=== PATIENT | female | born 1985 | race Caucasian/White ===

== ENCOUNTER 2022-04-13 12:54 | Emergency (ER) | payer OTHER ==
[2022-04-13 13:16] VITALS: BP 131/64; PULSE 89; TEMP 98; BMI 30.1
[2022-04-13] MEDS ORDERED: KETOROLAC TROMETHAMINE 30 MG/1 ML VIAL IM ONE (13:57)
[2022-04-13] MEDS ORDERED: KETOROLAC TROMETHAMINE 30 MG/1 ML VIAL ONE (13:58)
== END 2022-04-13 14:58 | disposition home or self-care (01) ==
LOC: JERFT 12:54 → JER 12:54 → JERFT 14:58
PROC: 3E0233Z Introduction of Anti-inflammatory into Muscle, Percutaneous Approach (ICD-10-PCS; principal; 2022-04-13)
DX: M54.50 Low back pain, unspecified (principal)
CPT/HCPCS: 84703; 99283-25

== ENCOUNTER 2022-11-11 22:25 | Emergency (ER) | payer OTHER ==
[2022-11-11 22:42] VITALS: BP 105/60; PULSE 84; RESP 17; TEMP 97.6; BMI 28.3
== END 2022-11-12 03:50 | disposition left against medical advice (07) ==
LOC: JER 22:25
DX: N93.9 Abnormal uterine and vaginal bleeding, unspecified (principal)
CPT/HCPCS: 99281-25

== ENCOUNTER 2023-08-21 22:50 | Emergency (ER) | payer SELFPAY ==
[2023-08-21 23:18] VITALS: BP 106/67; PULSE 108; RESP 16; BMI 24.7
[2023-08-21] MEDS ORDERED: FAMOTIDINE 20 MG/50 ML IVPB 20 MG/50 ML MG IVPB ONE ×2 (23:26→23:54)
[2023-08-21] MEDS ORDERED: ONDANSETRON 4 MG/2 ML VIAL IVPUSH ONE (23:26)
[2023-08-21] MEDS ORDERED: SODIUM CHLORIDE 0.9% 500 ML INFUS.BAG IV ONE (23:27)
[2023-08-21] MEDS ORDERED: ONDANSETRON 4 MG/2 ML VIAL ONE (23:54)
[2023-08-22 00:02] LABS: BASO % 0.3 % (0-2.0); EOS % 0.6 % (0-4.5); HEMATOCRIT 40.7 % (32.4-45.2); HEMOGLOBIN 14.3 GM/dL (10.7-15.3); LYMPH % 22.3 % (8-40); MCH 28.9 pg (25.7-33.7); MCHC 35.2 g/dl (32.0-36.0); MEAN CELL VOLUME 82.1 fl (80-96); MEAN PLT VOLUME 7.4 fl (7.5-11.1); MONO % 6.3 % (3.8-10.2); NEUT % 70.5 % (42.8-82.8); PLATELET COUNT 291 10^3/uL (134-434); RBC 4.95 M/mm3 (3.60-5.2); RDW 12.9 % (11.6-15.6); WHITE BLOOD COUNT 6.7 K/mm3 (4.0-10.0)
[2023-08-22 00:12] LABS: POTASSIUM 3.7 mmol/L (3.5-5.1)
[2023-08-22 00:14] LABS: CALCIUM 9.2 mg/dL (8.5-10.1)
[2023-08-22 00:15] LABS: ALBUMIN 4.2 g/dl (3.4-5.0); BLOOD UREA NITROGEN 11.6 mg/dL (7-18)
[2023-08-22 00:18] LABS: CREATININE 0.8 mg/dL (0.55-1.3)
[2023-08-22 00:19] LABS: BILIRUBIN,TOTAL 0.3 mg/dL (0.2-1); TOT PROT 7.9 g/dl (6.4-8.2)
== END 2023-08-22 02:25 | disposition home or self-care (01) ==
LOC: JER 22:50
PROC: 3E033GC Introduction of Other Therapeutic Substance into Peripheral Vein, Percutaneous Approach (ICD-10-PCS; principal; 2023-08-22)
PROC: 3E033GC Introduction of Other Therapeutic Substance into Peripheral Vein, Percutaneous Approach (ICD-10-PCS; 2023-08-22)
DX: F10.929 Alcohol use, unspecified with intoxication, unspecified (principal); R11.2 Nausea with vomiting, unspecified; R42 Dizziness and giddiness; R10.9 Unspecified abdominal pain
CPT/HCPCS: 36415; 80053; 82962; 83690; 84703; 85025; 93005; 93010; 99284-25

== ENCOUNTER 2023-12-21 07:11 | Emergency (ER) | payer OTHER ==
[2023-12-21 07:20] VITALS: RESP 20; BMI 24.7
[2023-12-21] MEDS ORDERED: IBUPROFEN 600 MG TABLET (FP) PO ONE (08:15)
[2023-12-21] MEDS: IBUPROFEN 600 MG TABLET (FP) PO ONE (08:18)
[2023-12-21 09:22] VITALS: TEMP 100.4
[2023-12-21 10:42] VITALS: BP 105/58; PULSE 107
== END 2023-12-21 10:35 | disposition home or self-care (01) ==
LOC: JER 07:11
DX: R05.9 Cough, unspecified (principal); R50.9 Fever, unspecified; R51.9 Headache, unspecified; J11.1 Influenza due to unidentified influenza virus with other respiratory manifestations; M79.10 Myalgia, unspecified site; Z20.822 Contact with and (suspected) exposure to COVID-19
CPT/HCPCS: 0241U-QW; 87651; 99283-25